=== PATIENT | female | born 1990 | race Caucasian/White ===

== ENCOUNTER 2020-12-25 16:01 | Emergency (ER) | payer OTHER ==
[2020-12-25] MEDS ORDERED: VOLTAREN **OUT50 MG PO (17:47)
[2020-12-25] MEDS ORDERED: ULTRAM50 MG PO (18:13)
[2021-01-24] MEDS ORDERED: ZOLOFT50 MG PO (15:32)
[2021-01-24] MEDS ORDERED: KEPPRA250 MG PO (15:33)
[2021-01-24] MEDS ORDERED: FEOSOL325 M1 PO (15:34)
[2021-01-24] MEDS ORDERED: VALACYCLOVIR1000 MG PO (15:36)
[2021-01-31] MEDS ORDERED: PERCOCET 5-3251 EACH PO (07:44)
[2021-01-31] MEDS ORDERED: MOBIC7.5 MG PO (12:28)
[2021-01-31] MEDS ORDERED: VOLTAREN TOP (12:30)
[2021-01-31] MEDS ORDERED: CLOBETASOL 0.0560 GM TOP (12:31)
[2021-01-31] MEDS ORDERED: WELLBUTRIN PO (12:32)
[2021-01-31] MEDS ORDERED: ASPIRIN325 MG PO (16:33)
== END 2020-12-25 18:30 | disposition home or self-care (01) ==
LOC: FER 16:01
DX: M25.461 Effusion, right knee (principal); F17.200 Nicotine dependence, unspecified, uncomplicated
CPT/HCPCS: 73564; J1885

== ENCOUNTER → 2021-01-31 | Day surgery (SDC) | payer OTHER ==
[~2021-01-31] VITALS: Ht 180.3 cm; Wt 97.5 kg
[~2021-01-31] MED LIST: ASPIRIN325 MG PO; CLOBETASOL 0.0560 GM TOP; FEOSOL325 M1 PO; KEPPRA250 MG PO; MOBIC7.5 MG PO; PERCOCET 5-3251 EACH PO; ULTRAM50 MG PO; VALACYCLOVIR1000 MG PO; VOLTAREN **OUT50 MG PO; VOLTAREN TOP; WELLBUTRIN PO; ZOLOFT50 MG PO
[2021-01-31 12:39] LABS: HCG (URINE) SCREEN NEGATIVE (NEGATIVE)
[2021-01-31 13:03] LABS: HCT 40.5 % (37.0-47.0); HGB 13.6 g/dl (12.5-16.0); MCH 32.5 pg (25.0-31.0); MCHC 33.6 g/dL (32.0-36.0); MCV 96.9 fL (78.0-100.0); MPV 9.9 fL (6.0-9.5); RBC 4.18 M/uL (4.20-5.40); RDW 13.1 % (11.5-14.0); WBC 9.9 K/uL (4.0-10.5)
[2021-01-31 13:20] LABS: ALBUMIN 3.6 g/dL (3.4-5.0); BILIRUBIN - TOTAL 0.3 mg/dL (0.2-1.0); BUN/CREAT RATIO (CALC) 9.5 RATIO; CREATININE 0.63 mg/dL (0.51-0.95); GLOBULIN (CALCULATION) 3.2 g/dL; POTASSIUM 4.3 mmol/L (3.5-5.1); TOTAL PROTEIN 6.8 g/dL (6.4-8.2)
== END | disposition home or self-care (01) ==
LOC: FAS 12:13
PROVIDERS: Orthopaedic Surgery
DX: S83.251A Bucket-handle tear of lateral meniscus, current injury, right knee, initial encounter (principal); S83.211A Bucket-handle tear of medial meniscus, current injury, right knee, initial encounter; Z47.2 Encounter for removal of internal fixation device; S83.511D Sprain of anterior cruciate ligament of right knee, subsequent encounter
CPT/HCPCS: 36415; 80053; 84703; C1713; J1100; J1170; J2250; J2405; J2704; J3010; J7120

== ENCOUNTER 2021-03-03 13:30 | Emergency (ER) | payer OTHER | END 2021-03-03 14:43 | disposition home or self-care (01) | LOC: FER 13:30 | DX: S80.01XA Contusion of right knee, initial encounter (principal); F17.200 Nicotine dependence, unspecified, uncomplicated; Z88.5 Allergy status to narcotic agent; W18.2XXA Fall in (into) shower or empty bathtub, initial encounter; Y92.009 Unspecified place in unspecified non-institutional (private) residence as the place of occurrence of the external cause | CPT/HCPCS: 73560 ==

== ENCOUNTER → 2021-05-30 | Day surgery (SDC) | payer OTHER ==
[~2021-05-30] VITALS: Ht 180.3 cm; Wt 97.5 kg
[~2021-05-30] MED LIST changes: +BUSPIRONE HCL15 M1 PO; +CETIRIZINE HCL10 MG PO; +SERTRALINE HCL50 MG PO; +[UNRECOGNIZED DRUG - OTHER]
== END | disposition home or self-care (01) ==
LOC: FAS 08:14
DX: T84.410A Breakdown (mechanical) of muscle and tendon graft, initial encounter (principal); F17.210 Nicotine dependence, cigarettes, uncomplicated; D64.9 Anemia, unspecified
CPT/HCPCS: 84703; J0690; J1100; J1170; J1885; J2250; J2405; J2704; J2795; J3010; J7120

== ENCOUNTER 2021-08-14 08:37 | Emergency (ER) | payer OTHER ==
[~2021-08-14] VITALS: Ht 182.9 cm; Wt 97.5 kg
[2021-08-14 09:33] LABS: BASOPHIL 0.2 % (0-2); EOSINOPHIL 0.6 % (0-5); LYMPHOCYTE 6.8 % (15-48); MCH 32.3 pg (25.0-31.0); MCHC 34.1 g/dL (32.0-36.0); MCV 94.5 fL (78.0-100.0); MONOCYTE 4.5 % (0-12); MPV 9.7 fL (6.0-9.5); NEUTROPHIL 87.5 % (41-80); NRBC 0; PLT 301 K/uL (150-400); RBC 4.34 M/uL (4.20-5.40); RDW 12.2 % (11.5-14.0); WBC 16.7 K/uL (4.0-10.5)
[2021-08-14 09:38] LABS: ALBUMIN 3.6 g/dL (3.4-5.0); BILIRUBIN - TOTAL 0.3 mg/dL (0.2-1.0); BUN/CREAT RATIO (CALC) 11.7 RATIO; CREATININE 0.6 mg/dL (0.51-0.95); GLOBULIN (CALCULATION) 3.2 g/dL; POTASSIUM 4.2 mmol/L (3.5-5.1); TOTAL PROTEIN 6.8 g/dL (6.4-8.2)
[2021-08-14] MEDS ORDERED: PRILOSEC20 MG PO (10:49)
[2021-08-14] MEDS ORDERED: BENTYL10 MG PO (10:49)
== END 2021-08-14 11:17 | disposition home or self-care (01) ==
LOC: FER 08:37
PROVIDERS: Emergency Medicine
DX: K29.70 Gastritis, unspecified, without bleeding (principal); F17.210 Nicotine dependence, cigarettes, uncomplicated
CPT/HCPCS: 36415; 76705; 80053; 83690; 85025; 99284